=== PATIENT | male | born 1945 | race Asian ===

== ENCOUNTER 2019-03-11 11:34 | Outpatient (CLI) | payer MEDICARE | END 2019-03-11 23:59 | disposition home or self-care (01) | LOC: RAD 11:34 | PROVIDERS: ATTEND Neurological Surgery | DX: M47.12 Other spondylosis with myelopathy, cervical region (principal); M48.02 Spinal stenosis, cervical region; G89.29 Other chronic pain | CPT/HCPCS: 72040 ==